=== PATIENT | male | born 1995 | race Caucasian/White ===

== ENCOUNTER 2017-01-27 10:08 | Emergency (ER) | payer SELFPAY ==
[2017-01-27 10:17] VITALS: BP 115/58
[2017-01-27] MEDS ORDERED: Ibuprofen TAB* 600 MG PO ONE (10:27)
--- NOTE | 2017-01-27 10:29 | UC ---
Throat Pain/Nasal Onesimo HPI - HPI Summary HPI Summary: sore throat for a couple of days, no fever, no illness exposure - History of Current Complaint Chief Complaint: UCGeneralIllness Stated Complaint: THROAT COMPLAINT Time Seen by Provider: 01/27/17 10:21 Hx Obtained From: Patient Onset/Duration: Gradual Onset, Lasting Days - 3, Still Present Severity: Moderate Pain Intensity: 5 Pain Scale Used: 0-10 Numeric Cough: None Associated Signs & Symptoms: Positive: Negative Related History: Smoking - Allergies/Home Medications Allergies/Adverse Reactions: Allergies Allergy/AdvReac Type Severity Reaction Status Date / Time No Known Allergies Allergy Verified 01/27/17 10:13 Home Medications: Home Medications Acetaminophen TAB* [Tylenol TAB*] 650 mg PO Q4H PRN 01/27/17 [History Confirmed 01/27/17] PMH/Surg Hx/FS Hx/Imm Hx Previously Healthy: No Cardiovascular History Of: Reports: Cardiac Disorders - heart murmur Other History Of: Negative For: Anticoagulant Therapy - Surgical History Surgical History: Yes Surgery Procedure, Year, and Place: left hand surgery 2015 - Family History Known Family History: Positive: Other - breast cancer - Social History Occupation: Employed Full-time - [employer] Lives: With Family Alcohol Use: Occasionally Substance Use Type: None Smoking Status (MU): Heavy Every Day Tobacco Smoker Type: Cigarettes Amount Used/How Often: 1 PPD Length of Time of Smoking/Using Tobacco: 3 years Have You Smoked in the Last Year: Yes Household Exposure Type: Cigarettes Cessation Counseling: Counseled 3+Min - 10 Min Review of Systems Constitutional: Negative Skin: Negative Eyes: Negative ENT: Sore Throat Respiratory: Negative Cardiovascular: Negative Gastrointestinal: Negative Genitourinary: Negative Motor: Negative Neurovascular: Negative Musculoskeletal: Negative Neurological: Negative Psychological: Negative All Other Systems Reviewed And Are Negative: Yes Physical Exam Triage Information Reviewed: Yes Appearance: Well-Appearing, No Pain Distress, Well-Nourished Vital Signs: Initial Vital Signs Temp 98.8 F 01/27/17 10:13 Pulse 64 01/27/17 10:13 Resp 16 01/27/17 10:13 BP 115/58 01/27/17 10:13 Pulse Ox 100 01/27/17 10:13 Vital Signs Reviewed: Yes Eye Exam: Normal Eyes: Positive: Conjunctiva Clear ENT Exam: Normal ENT: Positive: Normal ENT inspection, Hearing grossly normal, Pharynx normal, TMs normal. Negative: Nasal drainage, Tonsillar swelling, Tonsillar exudate, Trismus, Muffled/hoarse voice Dental Exam: Other Dental: Positive: Gross Decay/Caries @ Neck exam: Normal Neck: Positive: Supple, Nontender, No Lymphadenopathy Respiratory Exam: Normal Respiratory: Positive: Chest non-tender, Lungs clear, Normal breath sounds, No respiratory distress, No accessory muscle use Cardiovascular Exam: Normal Cardiovascular: Positive: RRR, No Murmur, Pulses Normal, Brisk Capillary Refill Musculoskeletal Exam: Normal Musculoskeletal: Positive: Strength Intact, ROM Intact, No Edema Neurological Exam: Normal Neurological: Positive: Alert, Muscle Tone Normal Psychological Exam: Normal Psychological: Positive: Normal Response To Family Skin Exam: Normal Diagnostics - Laboratory Diagnostic Studies Completed/Ordered: RST (-) Throat Pain/Nasal Course/Dx - Course Assessment/Plan: rest increase fluids, tylenol, ibuprofen for pain smoking cesation support provided, re-check prn - Differential Dx/Diagnosis Differential Diagnosis/HQI/PQRI: Laryngitis, Pharyngitis, Sinusitis, URI Provider Diagnoses: URI, Viral syndrome, nicotine dependant Discharge - Discharge Plan Condition: Stable Disposition: HOME Patient Education Materials: How to Stop Smoking (ED), Pharyngitis (ED), Cigarette Smoking and Your Health (GEN), Viral Syndrome (ED) Referrals: Blake Birch PA [Primary Care Provider] - 1 Week
== END 2017-01-27 11:08 | disposition home or self-care (01) ==
LOC: UCCORT 10:08
DX: J06.9 Acute upper respiratory infection, unspecified (principal); B34.9 Viral infection, unspecified; F17.210 Nicotine dependence, cigarettes, uncomplicated; Z71.6 Tobacco abuse counseling
CPT/HCPCS: 87651; 99212; A9270-GY; G0463

== ENCOUNTER 2017-05-12 19:58 | Emergency (ER) | payer SELFPAY ==
--- NOTE | 2017-05-12 23:11 | ED ---
Laceration/Wound HPI - HPI Summary HPI Summary: Pt here w/ Lt middle finger laceration while using chain saw earlier tonight. Bleeding. Denies numbness, tingling, weakness. Imms are UTD. Does not want anything for pain - just wondered if he needed sutures. No other injuries to report. - History of Current Complaint Stated Complaint: FINGER LAC FROM CHAINSAW Time Seen by Provider: 05/12/17 20:45 Hx Obtained From: Patient Pain Intensity: 5 - Allergy/Home Medications Allergies/Adverse Reactions: Allergies Allergy/AdvReac Type Severity Reaction Status Date / Time No Known Allergies Allergy Verified 01/27/17 10:13 PMH/Surg Hx/FS Hx/Imm Hx Previously Healthy: Yes Endocrine/Hematology History: Denies: Hx Anticoagulant Therapy, Hx Blood Disorders - Surgical History Surgery Procedure, Year, and Place: left hand surgery 2015 - Immunization History Immunizations Up to Date: Yes Infectious Disease History: No Infectious Disease History: Denies: Hx of Known/Suspected MRSA, Traveled Outside the [place] in Last 30 Days - Family History Known Family History: Positive: Other - breast cancer - Social History Occupation: Employed Full-time Lives: With Family Alcohol Use: Occasionally Hx Substance Use: No Substance Use Type: Reports: None Hx Tobacco Use: Yes Smoking Status (MU): Current Every Day Smoker Type: Cigarettes Amount Used/How Often: 1 PPD Length of Time of Smoking/Using Tobacco: 3 years Have You Smoked in the Last Year: Yes Review of Systems Musculoskeletal: Negative Skin: Other - see HPI Neurological: Negative Psychological: Normal All Other Systems Reviewed And Are Negative: Yes Physical Exam Triage Information Reviewed: Yes Vital Signs On Initial Exam: Initial Vitals Temp Pulse Resp BP Pulse Ox 98.1 F 100 20 125/68 99 05/12/17 20:00 05/12/17 20:00 05/12/17 20:00 05/12/17 20:00 05/12/17 20:00 Vital Signs Reviewed: Yes Appearance: Positive: Well-Appearing, No Pain Distress, Well-Nourished Skin: Positive: Warm - linear laceration over dorsal aspect of Lt middle finger , about the DIP joint - no vessels, nerves nor bone or tendon observed; joint tension intact Head/Face: Positive: Normal Head/Face Inspection Eyes: Positive: EOMI ENT: Positive: Hearing grossly normal Respiratory/Lung Sounds: Positive: Breath Sounds Present Musculoskeletal: Positive: Normal, Strength/ROM Intact Neurological: Positive: Normal, Sensory/Motor Intact, Alert, Oriented to Person Place, Time, CN Intact II-III Psychiatric: Positive: Normal - [place] Coma Scale Coma Scale Total: 15 Procedures - Laceration/Wound Repair 1 Location: upper extremity - Lt middle finger Description: Linear Length, Depth and Shape: 0.5cm x 2mm Betadine Prep?: Yes Irrigated w/ Saline (ccs): 50 - sterile saline Laceration/Wound Explored: clean Closure: Skin Adhesive, SteriStrips Layer Closure?: No Sterile Dressing Applied?: Yes - steri strips, adhesive and splint Diagnostics - Vital Signs Vital Signs Temp Pulse Resp BP Pulse Ox 05/12/17 20:47 98.1 F 100 20 125/68 99 05/12/17 20:00 98.1 F 100 20 125/68 99 - Laboratory Lab Statement: Any lab studies that have been ordered have been reviewed, and results considered in the medical decision making process. Laceration Repair Course/Dx - Clinical Impression Provider Diagnoses: Laceration of left middle finger Discharge - Discharge Plan Condition: Stable Disposition: HOME Patient Education Materials: Finger Laceration (ED), Skin Adhesive Care (ED), Steristrips (ED) Referrals: Blake Birch PA [Primary Care Provider] - Additional Instructions: Keep wound clean, dry and intact in splint for 10 days. Rest, ice and elevate for relief of pain and swelling You may take ibuprofen with food for pain as well. Follow-up with PCP in 5 days for wound check *If you develop redness, swelling streaking, purulent drainage, fever, chills, seek medical attention sooner
[2017-05-12 23:36] VITALS: BP 133/74
--- NOTE | 2017-05-13 07:17 | RAD ---
INDICATION: Chain saw laceration. TECHNIQUE: 3 views of the left middle finger were obtained. FINDINGS: There is a soft tissue defect and swelling at the dorsal aspect of the finger at the level of the distal middle phalanx. The bones are in normal alignment. No fracture is seen. Joint spaces appear maintained. IMPRESSION: SOFT TISSUE INJURY, NO FRACTURE IS SEEN.
== END 2017-05-12 23:35 | disposition home or self-care (01) ==
LOC: ED 19:58
DX: S61.213A Laceration without foreign body of left middle finger without damage to nail, initial encounter (principal); W27.8XXA Contact with other nonpowered hand tool, initial encounter; Y93.9 Activity, unspecified; Y92.9 Unspecified place or not applicable
CPT/HCPCS: 73140; 99282

== ENCOUNTER 2017-10-12 13:22 | Emergency (ER) | payer SELFPAY ==
[2017-10-12 13:29] VITALS: BP 135/70
--- NOTE | 2017-10-12 14:17 | RAD ---
Indication: Right Shoulder dislocation and injury. 3 views of the right shoulder demonstrates no fracture. No other bone or joint abnormality is noted. IMPRESSION: Unremarkable right shoulder.
[2017-10-12] MEDS ORDERED: Ketorolac INJ* 60 MG/2 ML VIAL IM ONE (14:58)
--- NOTE | 2017-10-13 10:52 | ED ---
Upper Extremity Pain - HPI Summary HPI Summary: pt to ed for evaluation of right shoulder pain. 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 The injury occurred when he was attempting to scoop [place]. Most of the pain is located in the posterior shoulder over the scapula, but radiates to the anterior. Denies neck pain. He is able to flex the shoulder, but pain occurs when he abducts the shoulder. Passive abduction with pain, but no signs of impingement. Denies other pain or health history. Takes no medications. - History of Current Complaint Chief Complaint: EDExtremityUpper Stated Complaint: RT SHOULDER AND BACK PAIN Time Seen by Provider: 10/12/17 13:40 Hx Obtained From: Patient Onset/Duration: Started Hours Ago Timing: Constant Severity Initially: Mild Severity Currently: Mild Pain Location: Shoulder Character: Aching Aggravating Factor(s): Flexion, Extension, Abduction Alleviating Factor(s): Rest, Ice Associated Signs & Symptoms: Positive: Negative Related History: Occupational Injury, Dominant Hand Right - Risk Factors Non-Orthopedic Risk Factor: Negative DVT Risk Factors: Negative Septic Arthritis Risk Factor: Negative Compartment Syndrome Risk Factors: Pain - Allergies/Home Medications Allergies/Adverse Reactions: Allergies Allergy/AdvReac Type Severity Reaction Status Date / Time No Known Allergies Allergy Verified 01/27/17 10:13 PMH/Surg Hx/FS Hx/Imm Hx Previously Healthy: Yes Endocrine/Hematology History: Denies: Hx Anticoagulant Therapy, Hx Blood Disorders - Surgical History Surgery Procedure, Year, and Place: left hand surgery 2016 - Immunization History Hx Pertussis Vaccination: No Immunizations Up to Date: Unable to Obtain/Confirm Infectious Disease History: No Infectious Disease History: Denies: Hx of Known/Suspected MRSA, Traveled Outside the [place] in Last 30 Days - Family History Known Family History: Positive: Other - breast cancer - Social History Occupation: Employed Full-time Lives: With Family Alcohol Use: Occasionally Hx Substance Use: No Substance Use Type: Reports: None Hx Tobacco Use: Yes Smoking Status (MU): Current Every Day Smoker Type: Cigarettes Amount Used/How Often: 1 PPD Length of Time of Smoking/Using Tobacco: 3 years Have You Smoked in the Last Year: Yes Review of Systems Constitutional: Negative Negative: Fever, Chills, Fatigue Eyes: Negative Cardiovascular: Negative Respiratory: Negative Positive: no symptoms reported, see HPI Positive: Arthralgia - R shoulder pain Skin: Negative Neurological: Negative All Other Systems Reviewed And Are Negative: Yes Physical Exam Triage Information Reviewed: Yes Vital Signs On Initial Exam: Initial Vitals Temp Pulse Resp BP Pulse Ox 97.1 F 97 20 135/70 100 10/12/17 13:26 10/12/17 13:26 10/12/17 13:26 10/12/17 13:26 10/12/17 13:26 Vital Signs Reviewed: Yes Appearance: Positive: Well-Appearing, Well-Nourished Skin: Positive: Warm, Skin Color Reflects Adequate Perfusion Head/Face: Positive: Normal Head/Face Inspection Eyes: Positive: EOMI, ANGIE, Conjunctiva Clear Neck: Positive: Supple, No Lymphadenopathy Respiratory/Lung Sounds: Positive: Clear to Auscultation, Breath Sounds Present Cardiovascular: Positive: RRR, Pulses are Symmetrical in both Upper and Lower Extremities Musculoskeletal: Positive: Pain @ - Neer test positive; lozada annie positive Neurological: Positive: Sensory/Motor Intact, Alert, Oriented to Person Place, Time, Speech Normal Psychiatric: Positive: Normal AVPU Assessment: Alert Diagnostics - Vital Signs Vital Signs Temp Pulse Resp BP Pulse Ox 10/12/17 15:21 98 F 74 16 135/70 98 10/12/17 13:26 97.1 F 97 20 135/70 100 - Laboratory Lab Statement: Any lab studies that have been ordered have been reviewed, and results considered in the medical decision making process. Course/Dx - Course Course Of Treatment: Most of the pain is located in the posterior shoulder over the scapula, but radiates to the anterior. Denies neck pain. He is able to flex the shoulder, but pain occurs when he abducts the shoulder. Passive abduction with pain, but no signs of impingement. Patient is given sling and note for work. Appears to be muscle strain. No signs of impingement. Other rotator cuff injury tests are negative including painful arc and droparm test. He is encouraged ibuprofen 600mg and ice and heat intermittently. He is Ok with discharge plan. - Diagnoses Provider Diagnoses: Muscle strain, shoulder region Discharge - Discharge Plan Condition: Stable Disposition: HOME Patient Education Materials: Rotator Cuff Injury (ED), Tendinitis (ED) Forms: *Work Release Referrals: Blake Birch PA [Primary Care Provider] - Additional Instructions: As discussed, you have a strain of the muscle in the back just over the scapula causing your pain You have associated tendinitis Ibuprofen 800mg three times daily for pain and inflammation x 5 days Keep in sling for comfort Ice today Begin tomorrow ice and heat intermittently Rest the arm
== END 2017-10-12 15:21 | disposition home or self-care (01) ==
LOC: ED 13:22
DX: S46.911A Strain of unspecified muscle, fascia and tendon at shoulder and upper arm level, right arm, initial encounter (principal); X50.9XXA Other and unspecified overexertion or strenuous movements or postures, initial encounter; Y93.89 Activity, other specified; Y92.79 Other farm location as the place of occurrence of the external cause; F17.210 Nicotine dependence, cigarettes, uncomplicated
CPT/HCPCS: 96372; 99281; J1885

== ENCOUNTER 2018-04-24 16:41 | Emergency (ER) | payer SELFPAY ==
[2018-04-24] MEDS ORDERED: DOXYcycline CAP(*) 100 MG PO ONE ×2 (17:08→17:09)
[2018-04-24 17:51] VITALS: BP 123/78
--- NOTE | 2018-04-24 18:18 | ED ---
Bebe Ascencio Simon, scribed for J Luis Good MD on 04/24/18 at 1715 . Skin Complaint - HPI Summary HPI Summary: This patient is a 23 year old M presenting to [facility] [place] accompanied by father with a chief complaint of an insect bite since yesterday 04/23/18. Pt endorses pain, warm to the touch. Pt endorses 1 tick bite this year. - History of Current Complaint Chief Complaint: EDAnimalBite Time Seen by Provider: 04/24/18 17:05 Stated Complaint: SPIDER BITE Hx Obtained From: Patient Onset/Duration: Started Days Ago - yesterday Timing: Constant Onset Severity: Moderate Current Severity: Moderate Pain Intensity: 5 Pain Scale Used: 0-10 Numeric Skin Location: Discrete - RUE Character: Redness, Painful Aggravating Symptom(s): Nothing Alleviating Symptom(s): Nothing Associated Signs & Symptoms: Rash Related History: Insect Bite/Sting, Possible Reaction to: Insect - Allergy/Home Medications Allergies/Adverse Reactions: Allergies Allergy/AdvReac Type Severity Reaction Status Date / Time seafood Allergy Swelling Uncoded 04/24/18 16:51 Of Face,Lips,& Throat PMH/Surg Hx/FS Hx/Imm Hx Endocrine/Hematology History: Denies: Hx Anticoagulant Therapy, Hx Blood Disorders Sensory History: Reports: Hx Contacts or Glasses Opthamlomology History: Reports: Hx Contacts or Glasses EENT History: Denies: Hx Deafness - Surgical History Surgery Procedure, Year, and Place: left hand surgery 2016 Infectious Disease History: No Infectious Disease History: Denies: Hx of Known/Suspected MRSA, Traveled Outside the [place] in Last 30 Days - Family History Known Family History: Positive: Other - breast cancer - Social History Alcohol Use: Occasionally Hx Substance Use: No Substance Use Type: Reports: None Hx Tobacco Use: Yes Smoking Status (MU): Current Every Day Smoker Type: Cigarettes Amount Used/How Often: 1 PPD Length of Time of Smoking/Using Tobacco: 3 years Have You Smoked in the Last Year: Yes Review of Systems Negative: Fever Positive: Rash - insect bite erythema, warm to touch. All Other Systems Reviewed And Are Negative: Yes Physical Exam - Summary Physical Exam Summary: General: well-appearing, no pain distress Skin: warm, color reflects adequate perfusion, dry, 4 cm erythematous warm to touch blanching area upper right arm, 3 mm scab in middle with no drainage. Head: normal Eyes: EOMI, ANGIE ENT: normal Neck: supple, nontender Respiratory: CTA, breath sounds present Cardiovascular: RRR Abdomen: soft, nontender Bowel: present Musculoskeletal: normal, strength/ROM intact Neurological: sensory/motor intact, A&O x3 Psychological: affect/mood appropriate Triage Information Reviewed: Yes Vital Signs On Initial Exam: Initial Vitals Temp Pulse Resp BP Pulse Ox 98.0 F 80 14 122/64 97 04/24/18 16:42 04/24/18 16:42 04/24/18 16:42 04/24/18 16:42 04/24/18 16:42 Vital Signs Reviewed: Yes Diagnostics - Vital Signs Vital Signs Temp Pulse Resp BP Pulse Ox 04/24/18 16:42 98.0 F 80 14 122/64 97 - Laboratory Lab Statement: Any lab studies that have been ordered have been reviewed, and results considered in the medical decision making process. Course/Dx - Course Course Of Treatment: RX DOXYCYCLINE 100MG PO BID X 14 DAYS TO COVER FOR CELLULITIS AND POSSIBLE LYME. F/U PMD; RETURN IF WORSE. - Diagnoses Provider Diagnoses: Cellulitis, Insect bite Discharge - Sign-Out/Discharge Documenting (check all that apply): Discharge/Admit/Transfer - Discharge Plan Condition: Stable Disposition: HOME Prescriptions: DOXYcycline CAP(*) [DOXYcycline 100MG CAP(*)] 100 mg PO BID #26 cap Patient Education Materials: Cellulitis (ED), Insect Bite or Sting (ED) Referrals: Blake Birch PA [Primary Care Provider] - Additional Instructions: FOLLOW UP WITH YOUR DOCTOR. RETURN TO THE EMERGENCY DEPARTMENT FOR ANY WORSENING OF YOUR CONDITION; SPREAD OF INFECTION, YOU FEEL ILL OR QUESTIONS OR CONCERNS. - Billing Disposition and Condition Condition: STABLE Disposition: Home The documentation as recorded by the Bebe og Simon accurately reflects the service I personally performed and the decisions made by me, J Luis Good MD.
== END 2018-04-24 17:50 | disposition home or self-care (01) ==
LOC: ED 16:41
DX: S40.861A Insect bite (nonvenomous) of right upper arm, initial encounter (principal); L03.119 Cellulitis of unspecified part of limb; R21 Rash and other nonspecific skin eruption; F17.210 Nicotine dependence, cigarettes, uncomplicated; W57.XXXA Bitten or stung by nonvenomous insect and other nonvenomous arthropods, initial encounter; Y92.9 Unspecified place or not applicable
CPT/HCPCS: 99282; A9270-GY

== ENCOUNTER 2019-02-15 09:45 | Emergency (ER) | payer OTHER ==
--- NOTE | 2019-02-15 10:22 | ED ---
Lower Extremity - HPI Summary HPI Summary: Pt. is a 24 y.o male who presents to the ER for a right lower leg injury that occurred yesterday. Pt. states he stepped in a ditched yesterday and twisted right lower leg. Able to ambulate with pain. Sxs are mild in severity. No current modifying factors. - History of Current Complaint Chief Complaint: EDExtremityLower Stated Complaint: ROLLED ANKLE AND BUMP IN [place] RIGHT LEG PER PT Time Seen by Provider: 02/15/19 10:06 Hx Obtained From: Patient Pain Intensity: 3 - Allergies/Home Medications Allergies/Adverse Reactions: Allergies Allergy/AdvReac Type Severity Reaction Status Date / Time seafood Allergy Swelling Uncoded 02/15/19 09:58 Of Face,Lips,& Throat PMH/Surg Hx/FS Hx/Imm Hx Previously Healthy: Yes Endocrine/Hematology History: Denies: Hx Anticoagulant Therapy, Hx Blood Disorders Sensory History: Reports: Hx Contacts or Glasses Denies: Hx Deafness Opthamlomology History: Reports: Hx Contacts or Glasses - Surgical History Surgery Procedure, Year, and Place: left hand surgery 2016 Infectious Disease History: No Infectious Disease History: Denies: Hx of Known/Suspected MRSA, Traveled Outside the [place] in Last 30 Days - Family History Known Family History: Positive: Other - breast cancer, Non-Contributory - Social History Occupation: Employed Full-time Lives: With Family Alcohol Use: Occasionally Hx Substance Use: No Substance Use Type: Reports: None Hx Tobacco Use: Yes Smoking Status (MU): Heavy Every Day Tobacco Smoker Type: Cigarettes Amount Used/How Often: 1 PPD Length of Time of Smoking/Using Tobacco: 3 years Have You Smoked in the Last Year: Yes Review of Systems Positive: Other - Right lower leg pain Skin: Negative Negative: Weakness, Paresthesia, Numbness All Other Systems Reviewed And Are Negative: Yes Physical Exam Triage Information Reviewed: Yes Vital Signs On Initial Exam: Initial Vitals Temp Pulse Resp BP Pulse Ox 97.8 F 67 17 129/67 100 02/15/19 09:56 02/15/19 09:56 02/15/19 09:56 02/15/19 09:56 02/15/19 09:56 Vital Signs Reviewed: Yes Appearance: Positive: Well-Appearing - Pt. sitting up in bed in NAD. Skin: Positive: Warm, Dry Head/Face: Positive: Normal Head/Face Inspection Eyes: Positive: Normal, EOMI, ANGIE Neck: Positive: Supple Musculoskeletal: Positive: Other - Good right pedal pulse. NO palpable foot or ankle pain. Distal lateral tib/fib pain. No knee pain. No breaks in skin. Neurological: Positive: Normal, CN Intact II-III Psychiatric: Positive: Affect/Mood Appropriate Diagnostics - Vital Signs Vital Signs Temp Pulse Resp BP Pulse Ox 02/15/19 09:56 97.8 F 67 17 129/67 100 - Laboratory Lab Statement: Any lab studies that have been ordered have been reviewed, and results considered in the medical decision making process. Lower Extremity Course/Dx - Course Course Of Treatment: Xray shows soft tissue swelling without fx or dislocation, reading per radiology. Advised ice and elevation. Tylenol or motrin for pain as directed. Will f.u with PCP if pain persist. Work excuse given .Pt .understands and agrees with plan. - Diagnoses Differential Diagnosis/HQI/PQRI: Positive: Contusion, Fracture (Closed), Sprain , Strain Provider Diagnoses: Leg sprain Discharge - Sign-Out/Discharge Documenting (check all that apply): Patient Departure Patient Received Moderate/Deep Sedation with Procedure: No - Discharge Plan Condition: Good Disposition: HOME Patient Education Materials: Sprain (ED) Forms: *Work Release Referrals: Blake Birch PA [Primary Care Provider] - If Needed Additional Instructions: Follow up with PCP if pain persist Ice and elevate Tylenol or Motrin for pain as directed Return to ER if symptoms change or worsen - Billing Disposition and Condition Condition: GOOD Disposition: Home
[2019-02-15 11:48] VITALS: BP 135/39
== END 2019-02-15 11:47 | disposition home or self-care (01) ==
LOC: ED 09:45
DX: S83.8X1A Sprain of other specified parts of right knee, initial encounter (principal); X50.1XXA Overexertion from prolonged static or awkward postures, initial encounter; Y93.01 Activity, walking, marching and hiking; F17.210 Nicotine dependence, cigarettes, uncomplicated
CPT/HCPCS: 99282

== ENCOUNTER 2019-03-07 16:52 | Emergency (ER) | payer OTHER ==
[2019-03-07] MEDS ORDERED: NS 0.9% 1000 ML** 1,000 ML IV ONE (17:55)
[2019-03-07 18:36] LABS: ABS Eosinophils 0.1 10^3/ul (0-0.6); ABS Lymphocytes 1.5 10^3/ul (1.0-4.8); ABS Monocytes 0.3 10^3/ul (0-0.8); ABS Neutrophils 1.5 10^3/ul (1.5-7.7); Eosinophil % 2.6 %; Hematocrit 42 % (42-52); Hemoglobin 14.2 g/dL (14.0-18.0); Lymphocyte % 43.9 %; Mean Corpuscular HGB Conc 33 g/dL (31-36); Mean Corpuscular Hemoglobin 30 pg (27-31); Mean Corpuscular Volume 91 fL (80-94); Mean Platelet Volume 9.5 fL (7.4-10.4); Platelet Count 159 10^3/uL (150-450); Red Blood Count 4.66 10^6 /uL (4.18-5.48); Red Cell Distribution Width 13 % (10.5-15); White Blood Count 3.5 10^3/uL (3.5-10.8)
[2019-03-07 18:53] LABS: ALT 18 U/L (7-52); AST 19 U/L (13-39); Albumin 4.3 g/dL (3.2-5.2); Albumin/Globulin Ratio 1.8 (1-3); Alkaline Phosphatase 70 U/L (34-104); Anion Gap 4 mmol/L (2-11); BUN/Creatinine Ratio 12.2 (8-20); Blood Urea Nitrogen 9 mg/dL (6-24); C Reactive Protein < 1.00 mg/L (<8.01); CO2 Carbon Dioxide 27 mmol/L (22-32); Calcium 9.3 mg/dL (8.6-10.3); Chloride 109 mmol/L (101-111); EGFR African American 154.7 (>60); EGFR Non-African American 127.9 (>60); Globulin 2.4 g/dL (2-4); Glucose 84 mg/dL (70-100); Potassium 4.5 mmol/L (3.5-5.0); Sodium 140 mmol/L (135-145); Total Protein 6.7 g/dL (6.4-8.9)
--- NOTE | 2019-03-07 18:57 | ED ---
Complex/Multi-Sys Presentation - HPI Summary HPI Summary: Patient complains of lightheadedness 3 days, one episode of nausea and vomiting. Lightheadedness and this is intermittent, lasts 15 minutes at a time , random onset. Denies fever, cough, sore throat, CP, SOB, D, abdominal pain, change in urine, change in BM. Medical history is peptic ulcer in 2007, hayfever. Positive smoker. Denies EtOH or recreational drug use. - History Of Current Complaint Chief Complaint: EDDizziness Time Seen by Provider: 03/07/19 17:42 Hx Obtained From: Patient Onset/Duration: Gradual Onset, Lasting Days Timing: Intermittent, Lasting:, Minutes Severity Currently: Mild Severity Initially: Mild Associated Signs And Symptoms: Positive: Nausea, Vomiting - Allergies/Home Medications Allergies/Adverse Reactions: Allergies Allergy/AdvReac Type Severity Reaction Status Date / Time seafood Allergy Swelling Uncoded 02/15/19 09:58 Of Face,Lips,& Throat PMH/Surg Hx/FS Hx/Imm Hx Endocrine/Hematology History: Denies: Hx Anticoagulant Therapy, Hx Blood Disorders Cardiovascular History: Denies: Hx Pacemaker/ICD History: Denies: Hx Dialysis Sensory History: Reports: Hx Contacts or Glasses Denies: Hx Deafness Opthamlomology History: Reports: Hx Contacts or Glasses EENT History: Denies: Hx Deafness Neurological History: Denies: Hx Dementia Psychiatric History: Denies: Hx Autism - Surgical History Surgery Procedure, Year, and Place: left hand surgery 2016 Infectious Disease History: No Infectious Disease History: Denies: Hx of Known/Suspected MRSA, Traveled Outside the [place] in Last 30 Days - Family History Known Family History: Positive: Other - breast cancer, Non-Contributory - Social History Alcohol Use: Occasionally Hx Substance Use: No Substance Use Type: Reports: None Hx Tobacco Use: Yes Smoking Status (MU): Heavy Every Day Tobacco Smoker Type: Cigarettes Amount Used/How Often: 1 PPD Length of Time of Smoking/Using Tobacco: 3 years Have You Smoked in the Last Year: Yes Review of Systems Constitutional: Negative Eyes: Negative ENT: Negative Cardiovascular: Negative Respiratory: Negative Positive: Vomiting, Nausea Genitourinary: Negative Musculoskeletal: Negative Skin: Negative Neurological: Negative Psychological: Normal All Other Systems Reviewed And Are Negative: Yes Physical Exam - Summary Physical Exam Summary: Patient in no apparent distress. Neuro exam normal. Lung sounds clear to auscultation bilaterally. RRR. Abdomen soft nontender. Triage Information Reviewed: Yes Vital Signs On Initial Exam: Initial Vitals Temp Pulse Resp BP Pulse Ox 98.1 F 68 18 128/75 99 03/07/19 17:10 03/07/19 17:10 03/07/19 17:10 03/07/19 17:10 03/07/19 17:10 Vital Signs Reviewed: Yes Appearance: Positive: Well-Appearing Skin: Positive: Warm Head/Face: Positive: Normal Head/Face Inspection Eyes: Positive: Normal ENT: Positive: Normal ENT inspection Neck: Positive: Supple Respiratory/Lung Sounds: Positive: Clear to Auscultation Cardiovascular: Positive: Normal Abdomen Description: Positive: Nontender Musculoskeletal: Positive: Normal Neurological: Positive: Normal Psychiatric: Positive: Normal AVPU Assessment: Alert - [place] Coma Scale Best Eye Response: 4 - Spontaneous Best Motor Response: 6 - Obeys Commands Best Verbal Response: 5 - Oriented Coma Scale Total: 15 Diagnostics - Vital Signs Vital Signs Temp Pulse Resp BP Pulse Ox 03/07/19 17:10 98.1 F 68 18 128/75 99 - Laboratory Lab Results: Lab Results 03/07/19 03/07/19 Range/Units 18:28 18:28 WBC 3.5 (3.5-10.8) 10^3/uL RBC 4.66 (4.18-5.48) 10^6 /uL Hgb 14.2 (14.0-18.0) g/dL Hct 42 (42-52) % MCV 91 (80-94) fL MCH 30 (27-31) pg MCHC 33 (31-36) g/dL RDW 13 (10.5-15) % Plt Count 159 (150-450) 10^3/uL MPV 9.5 (7.4-10.4) fL Neut % (Auto) 44.0 % Lymph % (Auto) 43.9 % [place] % (Auto) 8.2 % Eos % (Auto) 2.6 % Baso % (Auto) 1.3 % Absolute Neuts (auto) 1.5 (1.5-7.7) 10^3/ul Absolute Lymphs (auto) 1.5 (1.0-4.8) 10^3/ul Absolute Monos (auto) 0.3 (0-0.8) 10^3/ul Absolute Eos (auto) 0.1 (0-0.6) 10^3/ul Absolute Basos (auto) 0.0 (0-0.2) 10^3/ul Absolute Nucleated RBC 0.0 10^3/ul Nucleated RBC % 0.0 Sodium 140 (135-145) mmol/L Potassium 4.5 (3.5-5.0) mmol/L Chloride 109 (101-111) mmol/L Carbon Dioxide 27 (22-32) mmol/L Anion Gap 4 (2-11) mmol/L BUN 9 (6-24) mg/dL Creatinine 0.74 (0.67-1.17) mg/dL Est GFR ( Amer) 154.7 (>60) Est GFR (Non-Af Amer) 127.9 (>60) BUN/Creatinine Ratio 12.2 (8-20) Glucose 84 (70-100) mg/dL Calcium 9.3 (8.6-10.3) mg/dL Total Bilirubin 0.60 (0.2-1.0) mg/dL AST 19 (13-39) U/L ALT 18 (7-52) U/L Alkaline Phosphatase 70 (34-104) U/L C-Reactive Protein < 1.00 (<8.01) mg/L Total Protein 6.7 (6.4-8.9) g/dL Albumin 4.3 (3.2-5.2) g/dL Globulin 2.4 (2-4) g/dL Albumin/Globulin Ratio 1.8 (1-3) Result Diagrams: 03/07/19 18:28 03/07/19 18:28 Lab Statement: Any lab studies that have been ordered have been reviewed, and results considered in the medical decision making process. Complex Multi-Symp Course/Dx Course Of Treatment: Patient complains of lightheadedness 3 days, one episode of nausea and vomiting. Lightheadedness and this is intermittent, lasts 15 minutes at a time, random onset. Denies fever, cough, sore throat, CP, SOB, D, abdominal pain, change in urine, change in BM. Medical history is peptic ulcer in 2007, hayfever. Positive smoker. Denies EtOH or recreational drug use. Physical exam:Patient in no apparent distress. Neuro exam normal. Lung sounds clear to auscultation bilaterally. RRR. Abdomen soft nontender. Vital signs unremarkable. Labs unremarkable. EKG sinus bradycardia. - Diagnoses Provider Diagnoses: Lightheadedness Discharge - Sign-Out/Discharge Documenting (check all that apply): Patient Departure Patient Received Moderate/Deep Sedation with Procedure: No - Discharge Plan Condition: Stable Disposition: HOME Patient Education Materials: Allergies (ED), Lightheadedness (ED) Forms: *Gen. Provider Communication Referrals: Blake Birch PA [Primary Care Provider] - Additional Instructions: Drink plenty of fluids to maintain hydration. Follow-up with primary care. Return to the ED for any new or worsening symptoms. - Billing Disposition and Condition Condition: STABLE Disposition: Home
[2019-03-07 19:11] VITALS: BP 113/77
== END 2019-03-07 19:10 | disposition home or self-care (01) ==
LOC: ED 16:52
DX: R42 Dizziness and giddiness (principal); F17.210 Nicotine dependence, cigarettes, uncomplicated; R94.31 Abnormal electrocardiogram [ECG] [EKG]
CPT/HCPCS: 36415; 80053; 85025; 86140; 93005; 96360; 99283

== ENCOUNTER 2019-04-20 09:40 | Emergency (ER) | payer OTHER ==
[2019-04-20] MEDS ORDERED: Acetaminophen TAB* 325 MG PO ONE (10:12)
[2019-04-20] MEDS ORDERED: Penicillin VK TAB* 250 MG PO ONE (10:12)
[2019-04-20 11:11] VITALS: BP 142/88
--- NOTE | 2019-04-20 13:45 | ED ---
Throat Pain/Nasal Congestion - HPI Summary HPI Summary: Patient is a 24-year-old male who presents emergency department for dental pain times several weeks. Patient notes pain increased over the last few days. He denies fever, chills, nausea, vomiting, facial swelling. Patient states he called his dentist yesterday that he could not see him. He is taking Tylenol for pain as directed. No significant past medical history. Symptoms are mild in severity. Touching the affected area and eating makes symptoms worse. Nothing makes symptoms better. - History of Current Complaint Chief Complaint: EDDentalPain Time Seen by Provider: 04/20/19 10:00 Hx Obtained From: Patient - Allergies/Home Medications Allergies/Adverse Reactions: Allergies Allergy/AdvReac Type Severity Reaction Status Date / Time seafood Allergy Swelling Uncoded 04/20/19 09:48 Of Face,Lips,& Throat PMH/Surg Hx/FS Hx/Imm Hx Previously Healthy: Yes Endocrine/Hematology History: Denies: Hx Anticoagulant Therapy, Hx Blood Disorders Cardiovascular History: Denies: Hx Pacemaker/ICD History: Denies: Hx Dialysis Sensory History: Reports: Hx Contacts or Glasses Denies: Hx Deafness Opthamlomology History: Reports: Hx Contacts or Glasses Neurological History: Denies: Hx Dementia Psychiatric History: Denies: Hx Autism - Surgical History Surgery Procedure, Year, and Place: left hand surgery 2016 Infectious Disease History: No Infectious Disease History: Denies: Hx of Known/Suspected MRSA, Traveled Outside the [place] in Last 30 Days - Family History Known Family History: Positive: Other - breast cancer, Non-Contributory - Social History Occupation: Works From/At Home Lives: With Family Alcohol Use: Occasionally Hx Substance Use: No Substance Use Type: Reports: None Hx Tobacco Use: Yes Smoking Status (MU): Unknown if Ever Smoked Type: Cigarettes Amount Used/How Often: 1 PPD Length of Time of Smoking/Using Tobacco: 3 years Have You Smoked in the Last Year: Yes Review of Systems Constitutional: Negative Negative: Fever, Chills Eyes: Negative Positive: Dental Pain Gastrointestinal: Negative Negative: Vomiting, Nausea Neurological: Negative All Other Systems Reviewed And Are Negative: Yes Physical Exam Triage Information Reviewed: Yes Vital Signs On Initial Exam: Initial Vitals Temp Pulse Resp BP Pulse Ox 98.1 F 87 14 145/75 98 04/20/19 09:44 04/20/19 09:44 04/20/19 09:44 04/20/19 09:44 04/20/19 09:44 Vital Signs Reviewed: Yes Appearance: Positive: Well-Appearing - Pt. sitting on bed in NAD. Skin: Positive: Warm, Dry Head/Face: Positive: Normal Head/Face Inspection Eyes: Positive: Normal, EOMI, ANGIE Dental: Positive: Other - Poor dentition throughout with numerous extractions on the top. Decay and pain noted diffusely to left upper molars. No drainable abscess noted. No gum necrosis. No swelling under tongue. No facial edema or submandibular edema. No trismus. Neck: Positive: Supple, Nontender, No Lymphadenopathy Neurological: Positive: Normal, CN Intact II-III Psychiatric: Positive: Affect/Mood Appropriate Diagnostics - Vital Signs Vital Signs Temp Pulse Resp BP Pulse Ox 04/20/19 10:30 98.1 F 80 16 142/88 96 04/20/19 09:44 98.1 F 87 14 145/75 98 - Laboratory Lab Statement: Any lab studies that have been ordered have been reviewed, and results considered in the medical decision making process. EENT Course/Dx - Course Course Of Treatment: Pt. with dental decay and increased pain. He is afebrile. Will start on penicillin. Tylenol for pain. To call dentist tomorrow for f.u isaac. Will return to ER if sxs change or worsen. Pt. understands and agrees with plan. - Differential Diagnoses Differential Diagnoses: Dental Abscess, Dental Caries, Periodontic Abscess, Periodontic Disease - Diagnoses Provider Diagnoses: Dental decay Discharge - Sign-Out/Discharge Documenting (check all that apply): Patient Departure Patient Received Moderate/Deep Sedation with Procedure: No - Discharge Plan Condition: Good Disposition: HOME Prescriptions: Acetaminophen SUPP* [Tylenol Supp*] 650 mg NC Q4H PRN #20 supp PRN Reason: Pain Penicillin VK 500 MG TAB(NF) [Penicillin VK 500 mg Tab] 500 mg PO QID #40 tab Patient Education Materials: Toothache (ED) Referrals: Blake Birch PA [Primary Care Provider] - Additional Instructions: Call your dentist tomorrow for close follow up appointment Medication as directed Return to ER if symptoms change or worsen - Billing Disposition and Condition Condition: GOOD Disposition: Home
== END 2019-04-20 10:30 | disposition home or self-care (01) ==
LOC: ED 09:40
DX: K02.9 Dental caries, unspecified (principal); Z91.013 Allergy to seafood; F17.210 Nicotine dependence, cigarettes, uncomplicated
CPT/HCPCS: 99282; A9270-GY

== ENCOUNTER 2019-11-30 17:19 | Emergency (ER) | payer OTHER ==
[2019-11-30 18:18] VITALS: BP 123/79
--- NOTE | 2019-11-30 18:54 | UC ---
Dental HPI - HPI Summary HPI Summary: The patient is a 24-year-old male with upper gum pain 12 hours. He states the pain radiates up into his face. He denies any nasal congestion or postnasal drip. He has no fever or chills. He denies any nausea vomiting or diarrhea. He has not been in to see a dentist for at least 5 years. - History of Current Complaint Chief Complaint: UCDentalProblem Stated Complaint: TOOTH PAIN Time Seen by Provider: 11/30/19 18:41 Hx Obtained From: Patient Onset/Duration: Gradual Onset, Lasting Hours Severity: Severe Pain Intensity: 8 Pain Scale Used: 0-10 Numeric Aggravating Factor(s): Cold Alleviating Factor(s): Nothing Dental: 1 - absent teeth 2 - carious/rotted/gums swollen 3 - carious/gums swollen - Allergies/Home Medications Allergies/Adverse Reactions: Allergies Allergy/AdvReac Type Severity Reaction Status Date / Time seafood Allergy Swelling Uncoded 11/30/19 18:18 Of Face,Lips,& Throat Home Medications: Home Medications Loratadine/Pseudoephedrine [Loratadine-D 12 Hour Tablet] 1 each PO Q12H PRN [History Confirmed 11/30/19] PMH/Surg Hx/FS Hx/Imm Hx Previously Healthy: Yes Other History Of: Negative For: Anticoagulant Therapy - Surgical History Surgical History: Yes Surgery Procedure, Year, and Place: Dental surgery 2014, left hand surgery 2016 - Family History Known Family History: Positive: Hypertension, Other - breast cancer, Non- Contributory - Social History Alcohol Use: Occasionally Substance Use Type: None Smoking Status (MU): Light Every Day Tobacco Smoker Type: Cigarettes Amount Used/How Often: 1 PPD Length of Time of Smoking/Using Tobacco: 3 years Have You Smoked in the Last Year: Yes Household Exposure Type: Cigarettes Review of Systems All Other Systems Reviewed And Are Negative: Yes Constitutional: Positive: Negative Skin: Positive: Negative Eyes: Positive: Negative ENT: Positive: Dental Pain Respiratory: Positive: Negative Cardiovascular: Positive: Negative Gastrointestinal: Positive: Negative Genitourinary: Positive: Negative Motor: Positive: Negative Neurovascular: Positive: Negative Musculoskeletal: Positive: Negative Neurological/Mental Status: Positive: Negative Psychological: Positive: Negative Physical Exam Triage Information Reviewed: Yes Appearance: Well-Appearing, No Pain Distress, Well-Nourished Vital Signs: Initial Vital Signs Temp 98.0 F 11/30/19 18:15 Pulse 68 11/30/19 18:15 Resp 16 11/30/19 18:15 BP 123/79 11/30/19 18:15 Pulse Ox 100 11/30/19 18:15 Vital Signs Reviewed: Yes Eyes: Positive: Conjunctiva Clear ENT: Positive: Uvula midline. Negative: Hearing grossly normal, Nasal congestion, Nasal drainage, Tonsillar swelling, Tonsillar exudate, Trismus, Muffled voice, Hoarse voice Dental: Positive: Gross Decay/Caries @ - abysmal dentition/gums swollen/no secrete abscess noted Neck: Positive: Supple, Nontender, No Lymphadenopathy Respiratory: Positive: Lungs clear, Normal breath sounds, No respiratory distress Cardiovascular: Positive: RRR, No Murmur Musculoskeletal: Positive: ROM Intact, No Edema Neurological: Positive: Alert Psychological Exam: Normal Skin Exam: Normal Dental Complaint Course/Dx - Differential Dx/Diagnosis Provider Diagnosis: Gingivitis, Poor dentition Discharge ED - Sign-Out/Discharge Documenting (check all that apply): Patient Departure All imaging exams completed and their final reports reviewed: No Studies - Discharge Plan Condition: Stable Disposition: HOME Prescriptions: Ibuprofen TAB* [Motrin TAB*] 600 mg PO QID #40 tab Penicillin VK 500 MG TAB(NF) [Penicillin VK 500 mg Tab] 500 mg PO QID #28 tab Patient Education Materials: Gingivitis (ED) Referrals: No Primary Care Phys,NOPCP [Primary Care Provider] - Additional Instructions: you need to find a dentist to have some dental decay addressed recheck in 4 days if not improved - Billing Disposition and Condition Condition: STABLE Disposition: Home
== END 2019-11-30 19:05 | disposition home or self-care (01) ==
LOC: UCEAST 17:19
DX: K05.10 Chronic gingivitis, plaque induced (principal); K08.9 Disorder of teeth and supporting structures, unspecified; F17.210 Nicotine dependence, cigarettes, uncomplicated; Z91.013 Allergy to seafood
CPT/HCPCS: 99212; G0463